=== PATIENT | female | born 1950 | race Caucasian/White ===

== ENCOUNTER 2020-07-07 09:30 | Outpatient (CLI) | payer MEDICARE ==
--- NOTE | 2020-07-07 10:55 | BD ---
BONE DENSITOMETRY USING DEXA: HISTORY: Postmenopausal screening for osteoporosis. FINDINGS: Lumbar Spine: BMD (g/cm2) L1 0.856 T-Score: -1.2 Z-Score: 0.6 L2 0.901 T-Score: -1.2 Z-Score: 0.8 L3 1.042 T-Score: -0.4 Z-Score: 1.7 L4 1.172 T-Score: 1.0 Z-Score: 3.1 L1-L4 1.001 T-Score: -0.4 Z-Score: 1.6 Femoral Neck: 0.712 T-Score: -1.2 Z-Score: 0.5 Total Femur: 0.902 T-Score: -0.3 Z-Score: 1.1 Ten-year fracture risk for a major osteoporotic fracture is 8.6% and for a hip fracture is 0.9%. Impression: Osteopenia. POS: AH
--- NOTE | 2020-07-20 15:02 | MMO ---
Bilateral MAMMO Bilat Screen [facility]. CLINICAL HISTORY: Patient is 70 years old and is seen for screening. The patient has the following family history of breast cancer: sister, malignant (generic). The patient has no personal history of cancer. The patient has a history of left Excisional Biopsy in 1988 - benign. VIEWS: The views performed were: bilateral craniocaudal with tomosynthesis and bilateral mediolateral oblique with tomosynthesis. FILMS COMPARED: The present examination has been compared to prior imaging studies performed at [facility] on 11/18/2016, 01/22/2018 and 02/10/2018. This study has been interpreted with the assistance of computer-aided detection. MAMMOGRAM FINDINGS: There are scattered fibroglandular densities. There are vascular calcifications seen in both breasts. There are no suspicious masses, suspicious calcifications, or new areas of architectural distortion. IMPRESSION: A ROUTINE FOLLOW-UP MAMMOGRAM IN 1 YEAR IS RECOMMENDED. THE RESULTS OF THIS EXAM WERE SENT TO THE PATIENT. ACR BI-RADS Category 2 - Benign finding MAMMOGRAPHY NOTE: 1. A negative mammogram report should not delay a biopsy if a dominant of clinically suspicious mass is present. 2. Approximately 10% to 15% of breast cancers are not detected by mammography. 3. Adenosis and dense breasts may obscure an underlying neoplasm. Reported by: PRICILLA LUIS MD Electonically Signed: [id number]
== END 2020-07-07 09:31 | disposition home or self-care (01) ==
LOC: BICMAMMO 09:30
PROVIDERS: ATTEND Registered Nurse
DX: Z12.31 Encounter for screening mammogram for malignant neoplasm of breast (principal); M81.0 Age-related osteoporosis without current pathological fracture; M85.859 Other specified disorders of bone density and structure, unspecified thigh; Z80.3 Family history of malignant neoplasm of breast; Z91.89 Other specified personal risk factors, not elsewhere classified
CPT/HCPCS: 77063; 77067; 77080

== ENCOUNTER 2020-07-31 13:20 | Emergency (ER) | payer MEDICARE ==
[2020-07-31 18:08] LABS: SARS-CoV-2 MS2 Positive; SARS-CoV-2 N Gene Positive; SARS-CoV-2 S Gene Positive; SARS-CoV-2 by NAA DETECTED (NotDetected); SARS-CoV-2 orf1ab Positive
== END 2020-07-31 14:06 | disposition home or self-care (01) ==
LOC: ERS 13:20
DX: U07.1 COVID-19 (principal); I10 Essential (primary) hypertension; E78.00 Pure hypercholesterolemia, unspecified; E03.9 Hypothyroidism, unspecified; K21.9 Gastro-esophageal reflux disease without esophagitis
CPT/HCPCS: 99283; U0003; 87635

== ENCOUNTER 2021-10-08 13:40 | Outpatient (CLI) | payer MEDICARE | END 2021-10-08 13:41 | disposition home or self-care (01) | LOC: BICMAMMO 13:40 | PROVIDERS: ATTEND Family Medicine | DX: Z12.31 Encounter for screening mammogram for malignant neoplasm of breast (principal); Z13.820 Encounter for screening for osteoporosis; Z78.0 Asymptomatic menopausal state; Z80.3 Family history of malignant neoplasm of breast; M85.852 Other specified disorders of bone density and structure, left thigh; M85.851 Other specified disorders of bone density and structure, right thigh | CPT/HCPCS: 77063; 77067; 77080 ==